=== PATIENT | male | born 1995 | race Caucasian/White ===

== ENCOUNTER 2025-05-28 09:38 | Emergency (ER) | payer MEDICAID ==
[~2025-05-28] VITALS: Ht 167.6 cm; Wt 85.0 kg
[2025-05-28 09:40] VITALS: O2SAT 99
[2025-05-28] MEDS ORDERED: IBUP-2028 MT (10:57)
[2025-05-28 11:44] VITALS: BP 121/80; PULSE 73; RESP 16; TEMP 36.6; O2SAT 99
== END 2025-05-28 12:19 | disposition home or self-care (01) ==
LOC: ER 09:38
DX: M79.672 Pain in left foot (principal)
CPT/HCPCS: 73630; 99283